=== PATIENT | female | born 1935 | race Caucasian/White ===

== ENCOUNTER 2017-02-27 12:41 | Outpatient (CLI) | payer MEDICARE, MEDICAID ==
[2017-02-27 13:40] LABS: Hemoglobin A1c 5.6 % (4.0-6.0)
[2017-02-27 13:42] LABS: ALT (SGPT) 13 U/L (8-55); AST (SGOT) 17 U/L (5-34); Albumin 3.7 g/dL (3.4-4.8); Alkaline Phosphatase 79 U/L (40-150); Anion Gap 14 mmol/L (10-20); BUN (Urea Nitrogen) 9 mg/dL (9.8-20.1); Bilirubin, Direct 0.3 mg/dL (0.1-0.3); Bilirubin, Total 0.7 mg/dL (0.2-1.2); Calc. Creatinine Clearance 0 mL/min (70-130); Calcium 8.9 mg/dL (7.8-10.44); Carbon Dioxide 24 mmol/L (23-31); Cardiac Risk 2.6 (Less than 4.5); Chloride 106 mmol/L (98-107); Cholesterol 129 mg/dL (< 200 Desired); Estimated GFR-MDRD 71; Glucose 103 mg/dL (83-110); HDL Cholesterol 50 mg/dL (>60 Neg Risk); LDL Cholesterol, Calculated 63 mg/dL; Potassium 3.9 mmol/L (3.5-5.1); Protein, Total 6.7 g/dL (5.8-8.1); Sodium 140 mmol/L (136-145); Triglycerides 82 mg/dL (Less than 150)
== END 2017-02-27 12:42 | disposition home or self-care (01) ==
LOC: MADLABBHPM 12:41
PROVIDERS: ATTEND Family Medicine
DX: E78.5 Hyperlipidemia, unspecified (principal); E11.9 Type 2 diabetes mellitus without complications; F41.9 Anxiety disorder, unspecified
CPT/HCPCS: 36415; 80048; 80061; 80076; 83036; 84443

== ENCOUNTER 2017-03-16 14:46 | Outpatient (CLI) | payer MEDICARE, MEDICAID ==
--- NOTE | 2017-03-16 16:24 | RAD ---
ABDOMEN 1 VIEW: HISTORY: Diarrhea. FINDINGS/IMPRESSION: There are postop changes of cholecystectomy and tubal ligation. There is fecal material in the colo n. The bowel gas pattern is unremarkable. There are degenerative changes in the spine and hip join ts. POS: [facility]
--- NOTE | 2017-03-16 19:31 | RAD ---
FOUR VIEWS OF THE LEFT KNEE 03/16/2017 HISTORY: Left knee pain for one week. No history of trauma. FINDINGS: There is tricompartment osteophytosis. There are calcifications in both the medial and lateral join t compartments, suggesting chondrocalcinosis. There is osteopenia. No fracture or dislocation is s een. Vascular calcifications are seen posterior to the knee. IMPRESSION: 1. Osteoarthritis, osteopenia, and chondrocalcinosis involving the left knee. 2. No acute osseous abnormality is seen. POS: [facility]
== END 2017-03-16 14:47 | disposition home or self-care (01) ==
LOC: MADRAD 14:46
PROVIDERS: ATTEND Family Medicine
DX: R19.7 Diarrhea, unspecified (principal); M17.12 Unilateral primary osteoarthritis, left knee; M11.262 Other chondrocalcinosis, left knee; M25.562 Pain in left knee
CPT/HCPCS: 74000

== ENCOUNTER 2017-04-27 12:29 | Emergency (ER) | payer MEDICARE, MEDICAID ==
[2017-04-27] MEDS ORDERED: Acetaminophen 500 MG TAB ONE (12:55)
[2017-04-27] MEDS ORDERED: methylPREDNISolone Sod Succ/PF 125 MG/2 ML VIAL ONE (12:55)
[2017-04-27] MEDS ORDERED: Dexamethasone 10 MG/ML VIAL ONE (12:55)
[2017-04-27] MEDS ORDERED: Ketorolac Tromethamine 30 MG/ML VIAL ONE (12:55)
[2017-04-27 13:22] LABS: #Lymphocytes 1.2 thou/uL (1.20-3.40); #Monocytes 0.1 thou/uL (0.11-0.59); #Neutrophils 6.9 thou/uL (1.40-6.50); %Basophils 0.6 % (0.0-1.0); %Eosinophils 0.2 % (0.0-10.0); %Lymphocytes 14.7 % (21.0-51.0); %Monocytes 1.3 % (0.0-10.0); %Neutrophils 83.2 % (42.0-75.0); Hemoglobin 11.8 g/dL (12.0-16.0); Mean Corpuscular HGB CONC 32.5 g/dL (32.0-36.0); Mean Corpuscular Hemoglobin 30.7 pg (27.0-31.0); Mean Corpuscular Volume 94.6 fl (81.0-99.0); Mean Platelet Volume 7.8 fL (7.4-10.4); Platelet Count 163 thou/uL (130-400); RBC Distribution Width 13.3 % (11.5-14.5); Red Blood Cell (RBC) Count 3.84 mill/uL (4.20-5.40); White Blood Cell (WBC) Count 8.3 thou/uL (4.8-10.8)
[2017-04-27 13:23] LABS: PTT 33.7 SEC (22.9-36.1); Prothrombin Time 13.9 SEC (12.0-14.7)
[2017-04-27 13:31] LABS: ALT (SGPT) 7 U/L (8-55); AST (SGOT) 17 U/L (5-34); Albumin 3.7 g/dL (3.4-4.8); Alkaline Phosphatase 90 U/L (40-150); Anion Gap 18 mmol/L (10-20); BUN (Urea Nitrogen) 15 mg/dL (9.8-20.1); Bilirubin, Total 0.4 mg/dL (0.2-1.2); CK (CPK) 126 U/L (29-168); Calc. Creatinine Clearance 0 mL/min (70-130); Calcium 8.7 mg/dL (7.8-10.44); Carbon Dioxide 19 mmol/L (23-31); Chloride 106 mmol/L (98-107); Estimated GFR-MDRD 49; Glucose 137 mg/dL (83-110); Potassium 3.7 mmol/L (3.5-5.1); Protein, Total 6.7 g/dL (6.0-8.3); Sodium 139 mmol/L (136-145)
[2017-04-27 13:35] LABS: CKMB 2.7 ng/mL (0-6.6); Troponin I 0.027 ng/mL (< 0.028)
--- NOTE | 2017-04-27 13:51 | RAD ---
CHEST 1 VIEW: Date: 04/27/17 HISTORY: Dyspnea. COMPARISON: 06/02/14. FINDINGS: Portable upright chest demonstrates a normal cardiac silhouette. There is pulmonary vascular promine nce. There are pleural and parenchymal changes in the left lung base. Patchy interstitial and alveol ar infiltrates involving the lung bases are noted. Mild hyperinflation. No pneumothorax. IMPRESSION: 1. Pulmonary vascular prominence. Interstitial edema. Correlate for a component of heart failure. 2. Alveolar infiltrates. Continued surveillance. POS: [facility]
[2017-04-27 14:09] LABS: Bacteria/HPF Rare-Few HPF (None Seen); Bilirubin Negative (Negative); Blood, Urine Trace (Negative); Clarity c (Clear); Glucose, Urine (Dipstick) Negative (Negative); Leukocyte Negative (Negative); Nitrite Negative (Negative); Protein, Urine (Dipstick) Negative (Neg-Trace); RBC/HPF 0-3 HPF (0-3); Specific Gravity, Urine 1.015 (1.005-1.030); Squamous Epithelial 0-3 HPF (0-3); Urobilinogen 0.2 mg/dL (0.2-1.0); WBC/HPF 0-3 HPF (0-3); pH, Urine 5.5 (5.0-9.0)
[2017-04-27] MEDS ORDERED: Furosemide 40 MG/4 ML VIAL ONE (14:47)
== END 2017-04-27 15:12 | disposition short-term general hospital (02) ==
LOC: MADERS 12:29
DX: I11.0 Hypertensive heart disease with heart failure (principal); I50.9 Heart failure, unspecified; E78.5 Hyperlipidemia, unspecified; Z87.891 Personal history of nicotine dependence; Z79.899 Other long term (current) drug therapy
CPT/HCPCS: 36415; 51702; 71010; 80053; 81001; 82550; 82553; 83880; 84484; 85025; 85610; 85730; 87040; 87086; 93005; 94760; 96374; 96375; A4353; J1100; J1885; J1940; J2930

== ENCOUNTER 2017-07-19 13:09 | Outpatient (CLI) | payer MEDICARE, MEDICAID ==
[2017-07-19 13:52] LABS: Hemoglobin A1c 5.6 % (4.0-6.0)
[2017-07-19 14:50] LABS: ALT (SGPT) 10 U/L (8-55); AST (SGOT) 19 U/L (5-34); Albumin 3.7 g/dL (3.4-4.8); Alkaline Phosphatase 75 U/L (40-150); Anion Gap 12 mmol/L (10-20); BUN (Urea Nitrogen) 12 mg/dL (9.8-20.1); Bilirubin, Direct 0.3 mg/dL (0.1-0.3); Bilirubin, Total 0.8 mg/dL (0.2-1.2); Calc. Creatinine Clearance 0 mL/min (70-130); Calcium 9.1 mg/dL (7.8-10.44); Carbon Dioxide 28 mmol/L (23-31); Cardiac Risk 2.4 (Less than 4.5); Chloride 105 mmol/L (98-107); Cholesterol 143 mg/dl (< 200 Desired); Estimated GFR-MDRD 71; Glucose 97 mg/dL (83-110); HDL Cholesterol 60 mg/dL (>60 Neg Risk); LDL Cholesterol, Calculated 70 mg/dL; Potassium 3.9 mmol/L (3.5-5.1); Sodium 141 mmol/L (136-145); Triglycerides 67 mg/dL (Less than 150)
[2017-07-19 15:06] LABS: Eosinophils 2 % (0-10); Hemoglobin 11.6 g/dL (12.0-16.0); Lymphocytes 19 % (21-51); MDiff Complete? YES; Mean Corpuscular HGB CONC 31.9 g/dL (32.0-36.0); Mean Corpuscular Hemoglobin 30.1 pg (27.0-31.0); Mean Corpuscular Volume 94.6 fl (81.0-99.0); Mean Platelet Volume 6.9 fL (7.4-10.4); Monocytes 5 % (0-10); Neutrophil 32 % (42-75); PLT Morphology Comment Appears Adequate; Platelet Count 199 thou/uL (130-400); RBC Distribution Width 12.7 % (11.5-14.5); Reactive Lymphocytes 42 % (0-10); Red Blood Cell (RBC) Count 3.85 mill/uL (4.20-5.40)
[2017-07-20 14:12] LABS: INR-International Normal Ratio 1.1; PTT 36.4 SEC (22.9-36.1); Prothrombin Time 14.3 SEC (12.0-14.7)
== END 2017-07-19 13:10 | disposition home or self-care (01) ==
LOC: MADLABBHPM 13:09
PROVIDERS: ATTEND Internal Medicine Cardiovascular Disease
DX: R94.39 Abnormal result of other cardiovascular function study (principal); E78.5 Hyperlipidemia, unspecified; E11.9 Type 2 diabetes mellitus without complications
CPT/HCPCS: 36415; 80048; 80061; 80076; 82607; 83036; 84443; 85025; 85610; 85730

== ENCOUNTER 2017-08-23 13:55 | Outpatient (CLI) | payer MEDICARE, MEDICAID ==
--- NOTE | 2017-08-23 16:31 | RAD ---
LEFT KNEE FOUR VIEWS: INDICATIONS: Chronic pain. COMPARISON: Reference made to 03/16/2017. FINDINGS: There is evidence of chondrocalcinosis and tricompartment osteophytosis. Mild joint capsular disten tion is present. There is a linear lucency involving the central aspect of the lateral femoral cond yle with slight overlying cortical irregularity. IMPRESSION: 1. Subtle linear lucency involving the central aspect of the lateral femoral condyle. This could r elate to an occult fracture, as there is joint capsular distention. Finding may be further assessed with dedicated CT. 2. Evidence of CPPD deposition disease. POS: [facility]
== END 2017-08-23 13:56 | disposition home or self-care (01) ==
LOC: MADRAD 13:55
PROVIDERS: ATTEND Family Medicine
DX: M25.562 Pain in left knee (principal); M11.272 Other chondrocalcinosis, left ankle and foot

== ENCOUNTER 2017-08-24 14:27 | Outpatient (CLI) | payer MEDICARE, MEDICAID ==
--- NOTE | 2017-08-24 17:04 | RAD ---
RIGHT KNEE 3 VIEWS: Date: 08/24/17 INDICATION: Knee pain. No trauma reported. FINDINGS: There is chondrocalcinosis. Tricompartmental osteophytes are seen. There is no fracture, dislocation , or joint capsular distention. IMPRESSION: 1. Evidence of CPPD deposition disease. 2. No acute fracture. POS: [facility]
--- NOTE | 2017-08-24 17:10 | RAD ---
THREE VIEW LEFT KNEE: 08/24/17 INDICATION: Chronic knee pain. No injury reported. FINDINGS: There is chondrocalcinosis and tricompartmental osteophytosis. No joint capsular distention or acute fracture. Vascular calcifications present. IMPRESSION: CPPD deposition disease. No acute fracture. POS: [facility]
== END 2017-08-24 14:28 | disposition home or self-care (01) ==
LOC: MADRAD 14:27
PROVIDERS: ATTEND Orthopaedic Surgery
DX: M25.561 Pain in right knee (principal); M25.562 Pain in left knee; M11.862 Other specified crystal arthropathies, left knee

== ENCOUNTER 2018-11-26 12:56 | Outpatient (CLI) | payer MEDICARE, MEDICAID ==
[2018-11-26 14:29] LABS: Bilirubin Negative (Negative); Blood, Urine Trace (Negative); Clarity Clear (Clear); Glucose, Urine (Dipstick) Negative (Negative); Leukocyte Negative (Negative); Nitrite Negative (Negative); Protein, Urine (Dipstick) Trace mg/dL (Neg-Trace); Specific Gravity, Urine 1.025 (1.005-1.030)
[2018-11-26 14:35] LABS: Bacteria/HPF Rare-Few HPF (None Seen); Squamous Epithelial 0-3 HPF (0-3); WBC/HPF 0-3 HPF (0-3)
--- NOTE | 2018-11-26 15:41 | ULT ---
BILATERAL RENAL ULTRASOUND: Date: 11/26/18 HISTORY: Chronic kidney disease. TECHNIQUE: Multiplanar Baez scale sonographic imaging of the kidneys and urinary bladder obtained. FINDINGS: Secondary to bowel gas and associated shadowing, the left kidney is poorly assessed. The right kidney measures 10.9 x 4.8 x 3.5 cm and demonstrates no discrete mass, hydronephrosis, or stone. Left kidne y cannot be adequately assessed on this examination. Partially imaged left kidney demonstrates no ye dence for hydronephrosis. Urinary bladder volume is 35 mL pre-void and 13 mL post-void. IMPRESSION: No acute findings. Pre and post-void urinary bladder volumes as above. Please note that the left kid bre is poorly assessed on this exam. POS: [facility]
== END 2018-11-26 12:57 | disposition home or self-care (01) ==
LOC: MADLABBHPM 12:56
PROVIDERS: ATTEND Family Medicine
DX: N18.2 Chronic kidney disease, stage 2 (mild) (principal); R33.9 Retention of urine, unspecified
CPT/HCPCS: 76770; 81001

== ENCOUNTER 2020-05-02 15:32 | Emergency (ER) | payer MEDICARE, MEDICAID ==
[2020-05-02 16:20] LABS: #Basophils 0.1 thou/uL (0.0-0.2); #Lymphocytes 1.6 thou/uL (1.20-3.40); #Monocytes 0.5 thou/uL (0.11-0.59); #Neutrophils 2.1 thou/uL (1.40-6.50); %Basophils 1.4 % (0.0-1.0); %Eosinophils 1.1 % (0.0-10.0); %Lymphocytes 36.1 % (21.0-51.0); %Monocytes 11.9 % (0.0-10.0); %Neutrophils 49.5 % (42.0-75.0); Hemoglobin 11.7 g/dL (12.0-16.0); Mean Corpuscular HGB CONC 31.8 g/dL (32.0-36.0); Mean Corpuscular Volume 94.6 fL (78.0-98.0); Mean Platelet Volume 7.6 fL (7.4-10.4); Platelet Count 175 thou/uL (130-400); RBC Distribution Width 12.6 % (11.5-14.5); Red Blood Cell (RBC) Count 3.89 mill/uL (4.20-5.40); White Blood Cell (WBC) Count 4.3 thou/uL (4.8-10.8)
[2020-05-02 16:34] LABS: ALT (SGPT) 49 U/L (8-55); AST (SGOT) 52 U/L (5-34); Albumin 3.3 g/dL (3.4-4.8); Alkaline Phosphatase 234 U/L (40-110); Anion Gap 13 mmol/L (10-20); BUN (Urea Nitrogen) 11 mg/dL (9.8-20.1); Bilirubin, Total 0.4 mg/dL (0.2-1.2); CK (CPK) 107 U/L (29-168); Calc. Creatinine Clearance 0 mL/min (70-130); Carbon Dioxide 23 mmol/L (23-31); Chloride 108 mmol/L (98-107); Estimated GFR-MDRD 75; Globulin 2.3 g/dL (2.4-3.5); Glucose 235 mg/dL (83-110); Potassium 3.9 mmol/L (3.5-5.1); Protein, Total 5.6 g/dL (6.0-8.3); Sodium 140 mmol/L (136-145)
--- NOTE | 2020-05-02 16:39 | RAD ---
FRONTAL RADIOGRAPH CHEST: 05/02/20 COMPARISON: 06/20/18. HISTORY: Weakness. FINDINGS: There are coarse linear interstitial densities noted bilaterally, similar when compared to prior imag ing. There is atherosclerotic calcifications in the aortic arch. Stable prominence of the cardiac aaron houette noted. No pneumothorax, pleural fluid, lobar consolidation, or alveolar edema. IMPRESSION: Stable nonspecific increased linear interstitial density with no focal consolidation or alveolar ady a. POS: [facility]
[2020-05-02 16:40] LABS: Bilirubin Negative (Negative); Blood, Urine Negative (Negative); Clarity Clear (Clear); Glucose, Urine (Dipstick) 500 mg/dL (Negative); Ketone, Urine Negative (Negative); Leukocyte Negative (Negative); Nitrite Negative (Negative); Protein, Urine (Dipstick) Negative (Neg-Trace); Specific Gravity, Urine 1.015 (1.005-1.030); Urobilinogen 0.2 mg/dL (Less than 2)
[2020-05-02 16:54] LABS: CKMB 1.5 ng/mL (0-6.6)
[2020-05-02] MEDS ORDERED: Aspirin 325 MG TAB ONE (17:21)
== END 2020-05-02 17:28 | disposition short-term general hospital (02) ==
LOC: MADERS 15:32
DX: R53.1 Weakness (principal); R79.89 Other specified abnormal findings of blood chemistry; E11.9 Type 2 diabetes mellitus without complications; M19.90 Unspecified osteoarthritis, unspecified site; E78.5 Hyperlipidemia, unspecified; E78.00 Pure hypercholesterolemia, unspecified; I10 Essential (primary) hypertension; Z87.891 Personal history of nicotine dependence; Z79.82 Long term (current) use of aspirin; Z79.84 Long term (current) use of oral hypoglycemic drugs; Z79.899 Other long term (current) drug therapy
CPT/HCPCS: 36415; 71045; 80053; 81003; 82550; 82553; 84484; 85025; 93005